=== PATIENT | male | born 1960 | race African-American/Black ===

== ENCOUNTER 2023-10-27 12:04 | Inpatient (IN) | payer OTHER ==
[2023-10-27 12:49] VITALS: BMI 20.3
[2023-10-27] MEDS ORDERED: BISMUTH SUBSALICYLATE 262 MG/15 ML BTL PO PRN (14:42)
[2023-10-27] MEDS ORDERED: ONDANSETRON *ODT* 4 MG TABLET SL PRN (14:42)
[2023-10-27] MEDS ORDERED: BENZOCAINE/MENTHOL (CHLORASEPTIC ) LOZENGE MM PRN (14:42)
[2023-10-27] MEDS ORDERED: IBUPROFEN 600 MG TABLET (FP) PO PRN (14:42)
[2023-10-27] MEDS ORDERED: BENZONATATE 200 MG CAPSULE PO PRN (14:42)
[2023-10-27] MEDS ORDERED: MAG HYDROX/AL HYDROX/SIMETH 30 ML UNIT-DOSE CUP PO PRN (14:42)
[2023-10-27] MEDS ORDERED: MAGNESIUM HYDROX 2400MG/30ML ORAL SUSPENSION 30 ML CUP PO PRN (14:42)
[2023-10-27] MEDS ORDERED: ACETAMINOPHEN 325 MG TABLET (FP) PO PRN (14:42)
[2023-10-27] MEDS ORDERED: NICOTINE POLACRILEX 2 MG GUM BUC PRN (14:42)
[2023-10-27] MEDS ORDERED: NALOXONE HCL (KLOXXADO) 8 MG SPRAY NS PRN (14:42)
[2023-10-27] MEDS ORDERED: NALOXONE HCL 0.4 MG/ML VIAL IM PRN (14:42)
[2023-10-27] MEDS ORDERED: LOPERAMIDE HCL 2 MG CAPSULE PO PRN (14:42)
[2023-10-27] MEDS ORDERED: IBUPROFEN 400 MG TABLET (FP) PO PRN (14:42)
[2023-10-27] MEDS ORDERED: guaiFENesin 600 MG TABLET.ER (FP) PO PRN (14:42)
[2023-10-27] MEDS ORDERED: POLYETHYLENE GLYCOL (HEALTHYLAX) 3350 17 GM PACKET PO PRN (14:42)
[2023-10-27] MEDS ORDERED: DICYCLOMINE HCL 10 MG CAPSULE PO PRN (14:42)
[2023-10-27] MEDS ORDERED: cloNIDine HCL 0.1 MG TABLET PO ONE ×2 (14:47→16:09)
[2023-10-27] MEDS ORDERED: cloNIDine HCL 0.1 MG TABLET ONE (15:32)
[2023-10-27] MEDS: INSULIN ASPART SLIDING SCALE (NOVOLOG) 1 VIAL SQ SCH (16:51)
[2023-10-27] MEDS: MELATONIN 5 MG TABLETS PO SCH (22:48)
[2023-10-27] MEDS: THIAMINE HCL 100 MG TABLET (FP) PO SCH (22:48)
[2023-10-28] MEDS: INSULIN ASPART SLIDING SCALE (NOVOLOG) 1 VIAL SQ SCH ×2 (07:08→16:45)
[2023-10-28] MEDS ORDERED: cloNIDine HCL 0.1 MG TABLET PO ONE (08:30)
[2023-10-28] MEDS ORDERED: cloNIDine HCL 0.1 MG TABLET PO SCH (10:00)
[2023-10-28] MEDS: PRENATAL VITAMINS W/ FOLIC ACID TABLET (FP) PO SCH (10:38)
[2023-10-28] MEDS: amLODIPine BESYLATE 10 MG TABLET (FP) PO SCH (10:38)
[2023-10-28] MEDS ORDERED: LISINOPRIL 20 MG TABLET PO ONE (10:45)
[2023-10-28] MEDS: NICOTINE 14 MG/24 HOURS TOPICAL PATCH TD SCH (10:45)
[2023-10-28] MEDS ORDERED: INSULIN (NOVOLOG) ASPART 100 UNITS/ML 10ML VIAL ONE (16:43)
[2023-10-28] MEDS: MELATONIN 5 MG TABLETS PO SCH (22:13)
[2023-10-28] MEDS: THIAMINE HCL 100 MG TABLET (FP) PO SCH (22:13)
[2023-10-29] MEDS: INSULIN ASPART SLIDING SCALE (NOVOLOG) 1 VIAL SQ SCH ×2 (06:19→17:29)
[2023-10-29] MEDS ORDERED: INSULIN (NOVOLOG) ASPART 100 UNITS/ML 10ML VIAL ONE ×2 (06:20→17:28)
[2023-10-29] MEDS: PRENATAL VITAMINS W/ FOLIC ACID TABLET (FP) PO SCH (09:35)
[2023-10-29] MEDS: amLODIPine BESYLATE 10 MG TABLET (FP) PO SCH (09:35)
[2023-10-29] MEDS: NICOTINE 14 MG/24 HOURS TOPICAL PATCH TD SCH (09:36)
[2023-10-29] MEDS ORDERED: methaDONE HCL 10 MG TABLET (FOR DETOX USE ONLY) PO ONE (10:00)
[2023-10-29] MEDS ORDERED: diazePAM 5 MG TABLET PO PRN (10:58)
[2023-10-29] MEDS ORDERED: CARVEDILOL 25 MG TABLET (FP) PO SCH (11:15)
[2023-10-29] MEDS: LISINOPRIL 20 MG TABLET PO SCH (11:59)
[2023-10-29] MEDS ORDERED: METOPROLOL TARTRATE 50 MG TABLET (FP) PO ONE (20:59)
[2023-10-29] MEDS: THIAMINE HCL 100 MG TABLET (FP) PO SCH (21:01)
[2023-10-29] MEDS: MELATONIN 5 MG TABLETS PO SCH (22:00)
[2023-10-30] MEDS: INSULIN ASPART SLIDING SCALE (NOVOLOG) 1 VIAL SQ SCH ×2 (06:02→17:27)
[2023-10-30] MEDS: glipiZIDE 10 MG TABLET (FP) PO SCH (06:02)
[2023-10-30] MEDS ORDERED: cloNIDine HCL 0.1 MG TABLET PO STA (09:06)
[2023-10-30] MEDS: PRENATAL VITAMINS W/ FOLIC ACID TABLET (FP) PO SCH (09:09)
[2023-10-30] MEDS: amLODIPine BESYLATE 10 MG TABLET (FP) PO SCH (09:09)
[2023-10-30] MEDS: NICOTINE 14 MG/24 HOURS TOPICAL PATCH TD SCH (09:09)
[2023-10-30] MEDS: LISINOPRIL 20 MG TABLET PO SCH (09:11)
[2023-10-30] MEDS ORDERED: INSULIN (NOVOLOG) ASPART 100 UNITS/ML 10ML VIAL ONE (17:28)
[2023-10-30] MEDS: MELATONIN 5 MG TABLETS PO PRN (23:18)
[2023-10-30] MEDS: THIAMINE HCL 100 MG TABLET (FP) PO SCH (23:19)
[2023-10-31] MEDS ORDERED: glipiZIDE 5 MG TABLET (FP) ONE (05:10)
[2023-10-31] MEDS: glipiZIDE 10 MG TABLET (FP) PO SCH (06:03)
[2023-10-31] MEDS ORDERED: INSULIN (NOVOLOG) ASPART 100 UNITS/ML 10ML VIAL ONE (06:05)
[2023-10-31] MEDS: INSULIN ASPART SLIDING SCALE (NOVOLOG) 1 VIAL SQ SCH ×2 (06:11→16:56)
[2023-10-31] MEDS ORDERED: methaDONE HCL 10 MG TABLET (FOR DETOX USE ONLY) PO ONE (10:00)
[2023-10-31] MEDS: PRENATAL VITAMINS W/ FOLIC ACID TABLET (FP) PO SCH (10:35)
[2023-10-31] MEDS: amLODIPine BESYLATE 10 MG TABLET (FP) PO SCH (10:35)
[2023-10-31] MEDS ORDERED: cloNIDine HCL 0.1 MG TABLET PO ONE ×2 (13:00→21:22)
[2023-10-31] MEDS: MELATONIN 5 MG TABLETS PO PRN (21:49)
[2023-10-31] MEDS: THIAMINE HCL 100 MG TABLET (FP) PO SCH (21:49)
[2023-11-01] MEDS: glipiZIDE 10 MG TABLET (FP) PO SCH (06:03)
[2023-11-01] MEDS ORDERED: INSULIN (NOVOLOG) ASPART 100 UNITS/ML 10ML VIAL ONE (06:05)
[2023-11-01] MEDS: INSULIN ASPART SLIDING SCALE (NOVOLOG) 1 VIAL SQ SCH (06:07)
[2023-11-01] MEDS: amLODIPine BESYLATE 10 MG TABLET (FP) PO SCH (09:24)
[2023-11-01] MEDS: PRENATAL VITAMINS W/ FOLIC ACID TABLET (FP) PO SCH (09:24)
[2023-11-01] MEDS ORDERED: cloNIDine HCL 0.1 MG TABLET PO ONE ×2 (09:37→12:45)
[2023-11-01 12:47] VITALS: PULSE 103
[2023-11-01 13:34] VITALS: BP 176/89; RESP 18; TEMP 98.4
== END 2023-11-01 13:27 | disposition home or self-care (01) | DRG 773 ==
LOC: YASAS 12:04 → Y6N 15:21
PROVIDERS: ADMIT Allergy & Immunology; ATTEND Allergy & Immunology
PROC: HZ2ZZZZ Detoxification Services for Substance Abuse Treatment (ICD-10-PCS; principal; 2023-10-27)
DX: F11.23 Opioid dependence with withdrawal (principal); F14.20 Cocaine dependence, uncomplicated; I10 Essential (primary) hypertension; E11.610 Type 2 diabetes mellitus with diabetic neuropathic arthropathy; Z79.4 Long term (current) use of insulin; M17.0 Bilateral primary osteoarthritis of knee; R11.11 Vomiting without nausea; R94.31 Abnormal electrocardiogram [ECG] [EKG]; Z28.310 Unvaccinated for COVID-19; Z18.9 Retained foreign body fragments, unspecified material; Z99.89 Dependence on other enabling machines and devices
CPT/HCPCS: 71045-TC-FY; 82962; 83036; 87635; 93005; 93010; Q0162

== ENCOUNTER 2023-10-28 00:09 | Emergency (ER) | payer OTHER ==
[2023-10-28 00:28] VITALS: BMI 20.3
[2023-10-28] MEDS ORDERED: amLODIPine BESYLATE 10 MG TABLET (FP) PO ONE (01:47)
[2023-10-28 02:06] VITALS: RESP 16; TEMP 98.6
[2023-10-28] MEDS ORDERED: ACETAMINOPHEN 1000 MG/100 ML BAG IVPB ONE (02:16)
[2023-10-28] MEDS ORDERED: amLODIPine BESYLATE 10 MG TABLET (FP) ONE (02:18)
[2023-10-28] MEDS ORDERED: ACETAMINOPHEN INJECTION 100 ML IVPB ONE (02:18)
[2023-10-28 02:40] LABS: BASO % 0.6 % (0-2.0); EOS % 3.9 % (0-4.5); HEMATOCRIT 32.9 % (35.4-49); HEMOGLOBIN 10.6 GM/dL (11.7-16.9); LYMPH % 36.8 % (8-40); MCH 27.2 pg (25.7-33.7); MCHC 32.3 g/dl (32.0-35.9); MEAN CELL VOLUME 84.4 fl (80-96); MEAN PLT VOLUME 7.1 fl (7.5-11.1); MONO % 10.5 % (3.8-10.2); NEUT % 48.2 % (42.8-82.8); PLATELET COUNT 105 10^3/uL (134-434); RBC 3.91 M/mm3 (4.00-5.60); RDW 14.4 % (11.9-15.9); WHITE BLOOD COUNT 5.3 K/mm3 (4.0-10.0)
[2023-10-28 02:53] LABS: INR 1.05 (0.83-1.09); PROTHROMBIN TIME (PATIENT) 12.2 SEC (9.7-13.0)
[2023-10-28 02:55] LABS: ACTIVATED PTT 29.2 SECONDS (25.2-36.5)
[2023-10-28 03:05] LABS: POTASSIUM 4.4 mmol/L (3.5-5.1)
[2023-10-28 03:08] LABS: BLOOD UREA NITROGEN 18.6 mg/dL (7-18)
[2023-10-28 03:09] LABS: ALBUMIN 3.3 g/dl (3.4-5.0); MAGNESIUM 2.1 mg/dL (1.8-2.4)
[2023-10-28 03:11] LABS: CREATININE 0.8 mg/dL (0.55-1.3)
[2023-10-28 03:13] LABS: BILIRUBIN,TOTAL 0.2 mg/dL (0.2-1)
[2023-10-28 05:24] VITALS: BP 179/81; PULSE 79
== END 2023-10-28 06:04 | disposition home or self-care (01) ==
LOC: JER 00:09
PROC: 3E033NZ Introduction of Analgesics, Hypnotics, Sedatives into Peripheral Vein, Percutaneous Approach (ICD-10-PCS; principal; 2023-10-28)
DX: M54.50 Low back pain, unspecified (principal); G89.29 Other chronic pain; F11.10 Opioid abuse, uncomplicated; M25.569 Pain in unspecified knee; R94.31 Abnormal electrocardiogram [ECG] [EKG]
CPT/HCPCS: 36415; 80053; 83735; 84484; 85025; 85610; 85730; 93005; 93010; 99284-25

== ENCOUNTER 2023-10-29 22:41 | Emergency (ER) | payer OTHER ==
[2023-10-29 23:11] VITALS: BMI 20.3
[2023-10-30] MEDS ORDERED: LACTATED RINGERS SOLUTION 1000 ML INFUS.BAG IV ONE (00:01)
[2023-10-30] MEDS ORDERED: ACETAMINOPHEN 1000 MG/100 ML BAG IVPB ONE (00:27)
[2023-10-30] MEDS ORDERED: METOCLOPRAMIDE HCL INJECTION 10 MG/2 ML VIAL IVPUSH ONE (00:32)
[2023-10-30] MEDS ORDERED: FAMOTIDINE 20 MG/50 ML IVPB 20 MG/50 ML MG IVPB ONE ×2 (00:35→00:46)
[2023-10-30 00:45] VITALS: RESP 18
[2023-10-30] MEDS ORDERED: METOCLOPRAMIDE HCL INJECTION 10 MG/2 ML VIAL ONE (00:46)
[2023-10-30] MEDS ORDERED: ACETAMINOPHEN INJECTION 100 ML IVPB ONE (00:46)
[2023-10-30 01:04] LABS: HEMATOCRIT 38.5 % (35.4-49); HEMOGLOBIN 12.7 GM/dL (11.7-16.9); MCH 27.6 pg (25.7-33.7); MEAN CELL VOLUME 83.7 fl (80-96); RBC 4.61 M/mm3 (4.00-5.60)
[2023-10-30 01:05] LABS: INR 1.13 (0.83-1.09); PROTHROMBIN TIME (PATIENT) 13.1 SEC (9.7-13.0); WHITE BLOOD COUNT 8.3 K/mm3 (4.0-10.0)
[2023-10-30 01:08] LABS: ACTIVATED PTT 29.7 SECONDS (25.2-36.5)
[2023-10-30 01:17] LABS: POTASSIUM 4.1 mmol/L (3.5-5.1)
[2023-10-30 01:19] LABS: CALCIUM 10.2 mg/dL (8.5-10.1)
[2023-10-30 01:20] LABS: ALBUMIN 3.8 g/dl (3.4-5.0); BLOOD UREA NITROGEN 14.5 mg/dL (7-18)
[2023-10-30 01:23] LABS: CREATININE 0.9 mg/dL (0.55-1.3)
[2023-10-30 01:24] LABS: BILIRUBIN,TOTAL 0.4 mg/dL (0.2-1); TOT PROT 8.5 g/dl (6.4-8.2)
[2023-10-30] MEDS ORDERED: LABETALOL HCL 5 MG/1 ML (100MG/20 ML VIAL) IVPUSH ONE (01:42)
[2023-10-30] MEDS ORDERED: LABETALOL HCL 20 MG/4 ML VIAL ONE (01:46)
[2023-10-30 02:32] LABS: PH,URINE 8.5 (5.0-8.0); URINE APPEARANCE CLOUDY; URINE BILIRUBIN NEGATIVE (NEGATIVE); URINE COLOR YELLOW; URINE GLUCOSE (UA) 3+ (NEGATIVE); URINE KETONE NEGATIVE (NEGATIVE); URINE LEUK ESTERASE NEGATIVE (NEGATIVE); URINE NITRITE NEGATIVE (NEGATIVE); URINE PROTEIN TRACE (NEGATIVE)
[2023-10-30 02:50] LABS: ANISOCYTOSIS 3+; MACROCYTOSIS 0; OVALOCYTE 1+; ROULEAU 1+
[2023-10-30 06:35] VITALS: BP 191/84; PULSE 76; TEMP 99.3
[2023-10-30] MEDS ORDERED: methaDONE HCL 10 MG TABLET (FOR DETOX USE ONLY) ONE (09:03)
[2023-10-30] MEDS ORDERED: cloNIDine HCL 0.1 MG TABLET ONE (09:04)
[2023-10-30] MEDS ORDERED: LISINOPRIL 10 MG TABLET ONE (09:04)
[2023-10-30] MEDS ORDERED: NICOTINE 14 MG/24 HOURS TOPICAL PATCH TD ONE (09:04)
[2023-10-30] MEDS ORDERED: amLODIPine BESYLATE 5 MG TABLET (FP) ONE (09:04)
== END 2023-10-30 07:19 | disposition home or self-care (01) ==
LOC: JER 22:41
PROC: 3E033GC Introduction of Other Therapeutic Substance into Peripheral Vein, Percutaneous Approach (ICD-10-PCS; principal; 2023-10-30)
PROC: 3E033GC Introduction of Other Therapeutic Substance into Peripheral Vein, Percutaneous Approach (ICD-10-PCS; 2023-10-30)
PROC: 3E033GC Introduction of Other Therapeutic Substance into Peripheral Vein, Percutaneous Approach (ICD-10-PCS; 2023-10-30)
PROC: 3E033GC Introduction of Other Therapeutic Substance into Peripheral Vein, Percutaneous Approach (ICD-10-PCS; 2023-10-30)
DX: R53.1 Weakness (principal); R11.11 Vomiting without nausea
CPT/HCPCS: 36415; 71045-TC-FY; 80053; 81003; 83605; 83690; 84484; 85025; 85610; 85730; 93005; 93010; 99285-25